=== PATIENT | male | born 1995 | race Caucasian/White ===

== ENCOUNTER 2020-03-11 22:46 | Emergency (ER) | payer OTHER, SELFPAY ==
[2020-03-11 22:59] VITALS: BP 155/86; PULSE 80; RESP 14; TEMP 36.7; O2SAT 98; BMI 26.2
--- NOTE | 2020-03-11 23:12 | W.ED.HA ---
HPI - Headache General: Chief Complaint: Headache Stated Complaint: headache/dizzy Time Seen by Provider: 03/11/20 23:01 History of Present Illness: HPI Narrative: Patient is a 24-year-old male who comes to the ED with a headache and mental cloudiness. Patient says he started having the symptoms about 2 days ago. Headache and mental cloudiness he said comes and goes and is not present all day. It usually worse in the mornings when he wakes up and then it gets better as he gets up moving around. The location of the headache sometimes starts in the neck and moves to the top of his head or it is retro-orbital behind both eyes. He has had some mild nausea with the headache, but has not had any vomiting. He currently says he is not having a headache while here in the ED but when the headache comes on he rates it about a 5 out of 10 at its worst. The mental cloudiness occurs along with the headaches. He describes it as being tough to focus or concentrate and forgets minor things. he just does not feel himself when he starts getting those headaches. He has no past history of migraines or any head trauma. Denies photophobia, vision changes, numbness or tingling to extremities or face, weakness to extremities, fever, bladder or bowel symptoms. Currently in the ED, patient is not having the headache or mental cloudiness symptoms. Associated symptoms: Reports confusion (mental cloudiness); Deny chest pain, fever(s), nausea, rash or vomiting Review of Systems Const: Denies: fever, chills or fatigue Eyes: Denies: change in vision or eye discomfort ENMT: Denies: throat pain, painful swallowing, nasal discharge or nasal congestion Card: Denies: chest pain, palpitations, edema, swelling of feet/ankles, shortness of breath on exertion or shortness of breath when lying down Resp: Denies: shortness of breath, productive cough or non-productive cough GI: Denies: abdominal pain, nausea, vomiting, diarrhea, constipation or blood in stool : Denies: flank pain, difficulty urinating, painful urination or blood in urine Musc: Denies: neck pain, back pain or extremity swelling Skin/Breast: Denies: rash or new lesion Neuro: Reports: headache and confusion (mental cloudiness); Denies: numbness in extremities or weakness in extremities PFSH ED PFSH: Social History Smoking and tobacco status: never smoked Physical Exam Const: COMMON NORMALS: no apparent distress, oriented x3, no limitations, healthy appearing and alert GENERAL APPEARANCE: cooperative, comfortable and well kempt HENMT: COMMON NORMALS: normocephalic HEAD & SCALP: normocephalic MOUTH: oral and palatal mucosa normal THROAT: posterior oropharynx normal and uvula midline Eye: COMMON NORMALS: PERRL, EOMs intact bilaterally, conjunctivae normal and normal visual huynh by confrontation CONJUNCTIVA: Yes conjunctivae normal PUPIL: Yes PERRL Neck/C-Spine: COMMON NORMALS: supple GENERAL: Yes normal visual inspection Resp: COMMON NORMALS: normal respiratory effort, no retractions, no use of accessory muscles and clear to auscultation bilaterally AUSCULTATION: clear to auscultation bilaterally Cardio: COMMON NORMALS: regular rate, regular rhythm, S1 normal heart sound, S2 normal heart sound, no gallops, no clicks, no murmurs and peripheral pulses 2+ throughout RATE: regular rate RHYTHM: regular rhythm HEART SOUNDS: S1 normal and S2 normal PERIPHERAL PULSES: pulses 2+ throughout GI: COMMON NORMALS: normal to inspection, nondistended, normoactive bowel sounds, soft to palpation, non-tender and no masses PALPATION: Yes soft : COMMON NORMALS: Yes no CVA tenderness BLADDER/KIDNEY EXAM: Yes no CVA tenderness Back/Pelvis: COMMON NORMALS: no CVA tenderness Extremity: COMMON NORMALS: normal to inspection, normal capillary refill and no pedal edema Neuro: COMMON NORMALS: oriented x3, CN's II-XII intact bilaterally, moves all extremities, no focal motor deficits and no sensory deficits noted SENSORIUM/ORIENTATION: Yes alert MENINGEAL SIGNS: No Brudzinski's sign SENSORY EXAM: Yes extremities (intact) MOTOR EXAM: strength 5/5 throughout Psych: APPEARANCE: Yes well kempt Skin: COMMON NORMALS: no rashes or lesions noted GENERAL SKIN EXAM: no rashes or lesions noted and dry skin Course Vital Signs: Vital signs: Vital Signs Temperature 98.1 F 03/11/20 22:59 Pulse Rate 80 03/11/20 22:59 Respiratory Rate 14 03/11/20 22:59 Blood Pressure 155/86 03/11/20 22:59 Pulse Oximetry 98 03/11/20 22:59 MDM - Headache Imaging Data^: CT Head: Attestation: I personally reviewed and interpreted this imaging study as follows: Radiologist's impression: [address] [address] [address] Scan Report Signed Patient: Nader Dudley Unit #: [id number] : 1995 Age/Sex: 24 / M ADM Date: 03/11/20 Loc: ER Room/Bed: Attending Dr: Ordering Provider/Ordering MD: Dedrick Boss Date of Service: 03/11/20 Procedure(s): CT head wo con* [id number] Accession Number(s): [id number] Report Number: [id number] PROCEDURE INFORMATION: Exam: CT Head Without Contrast Exam date and time: 03/11/2020 11:16 PM Age: 24 years old Clinical indication: Pain; Altered mental status/memory loss; Confusion or disorientation; Headache not specified; Additional info: Headache with confusion TECHNIQUE: Imaging protocol: Computed tomography of the head without contrast. Total DLP: 799.76 mGy-cm Radiation optimization: All CT scans at this facility use at least one of these dose optimization techniques: automated exposure control; mA and/or kV adjustment per patient size (includes targeted exams where dose is matched to clinical indication); or iterative reconstruction. COMPARISON: No relevant prior studies available. FINDINGS: Brain: No acute intracranial hemorrhage or mass effect. No definite acute infarct by CT. MRI could be more sensitive/specific for detection, as clinically directed. Ventricles: Ventricle size is normal for age. Bones/joints: No definite acute skull fracture. Sinuses: Included paranasal sinuses are essentially clear. Mastoid air cells: No significant acute finding. CT/CT head wo con* [id number] IMPRESSION: 1. No acute intracranial hemorrhage or mass effect. 2. No definite acute infarct by CT, see above. 3. Other findings discussed above. Radiation Dose CTDIVOL = (mGy): DLP = 799.76 (mGy-cm) Dictated By: David Duckworth MD Signed By: David Duckworth MD Signed Date/Time: 03/11/202351 DD/ 50 Discharge Plan Discharge Patient Disposition: Home, Self-Care Clinical Impression: Tension headache Condition: Stable Discharge Orders: Discharge Order (Routine); Ordered 03/12/20 Ordered By: Dedrick Boss Referrals: Kelvin Rios [Family Provider] - Discharge Diet: Regular Discharge Activity: Resume usual activity Patient Instructions: Tension Headache (ED) Activity Restrictions/Additional Instructions: Follow-up with your PCP in 7 to 10 days for reevaluation. Take [id number] ibuprofen or Tylenol as needed for any headaches. Drink plenty of fluids and stay hydrated. Return to ED if you are having any worsening symptoms or headache with other neurological deficits. Discharge Date/Time: 03/12/20 00:12 Coding Level of Care Code ED Chain Forming Machine Operator for Kristopher Fwd Exam Comprehensive
== END 2020-03-12 00:12 | disposition home or self-care (01) ==
PROVIDERS: Emergency Provider Physician Assistant
DX: G44.209 Tension-type headache, unspecified, not intractable (principal)
CPT/HCPCS: 12345; 70450; 99281; 99282

== ENCOUNTER 2023-05-19 16:17 | Emergency (ER) | payer OTHER, SELFPAY ==
[2023-05-19 16:26] VITALS: BP 136/88; PULSE 77; RESP 16; TEMP 36.7; O2SAT 98; BMI 28.1
--- NOTE | 2023-05-19 16:42 | W.ED.GENADLT ---
HPI - General Adult General: Chief complaint: Airway/Esophagus Foreign Body Stated complaint: possible food stuck in throat Time Seen by Provider: 05/19/23 16:34 Source: patient Mode of arrival: ambulatory Limitations: no limitations History of Present Illness: 27-year-old male states he has had difficulty swallowing the past does have a history of esophagitis states he is eating chips earlier today and states he feels like there is something stuck in his esophagus. He is handling secretions well he denies any vomiting diarrhea states he just has a foreign body sensation in his lower throat. He denies any worsening proving factors. Associated symptoms: Deny chest pain, dyspnea, nausea, rash or vomiting Review of Systems Const: Denies: fever(s) or chills Eyes: Denies: eye discomfort ENMT: Reports: odynophagia; Denies: throat pain or dental pain Card: Denies: chest pain Resp: Denies: dyspnea GI: Denies: abdominal pain, nausea, vomiting or diarrhea Musc: Denies: neck pain or back pain Skin/Breast: Denies: rash All/Imm: Denies: urticaria PFSH ED PFSH: Social History Smoking and tobacco status: never smoked Physical Exam Const: COMMON NORMALS: no acute distress and patient oriented x3 HENMT: COMMON NORMALS: normocephalic and atraumatic HEAD & SCALP: normocephalic and atraumatic Eye: COMMON NORMALS: conjunctivae normal CONJUNCTIVA: Yes conjunctivae normal Neck/C-Spine: COMMON NORMALS: full ROM and supple Chest: COMMONS NORMALS: normal inspection of the chest Resp: COMMON NORMALS: normal respiratory effort Cardio: COMMON NORMALS: regular rate RATE: regular rate GI: INSPECTION: Yes normal to inspection Extremity: COMMON NORMALS: normal to inspection Neuro: COMMON NORMALS: patient oriented x3 Psych: COMMON NORMALS: mental status grossly normal Skin: COMMON NORMALS: no rashes or lesions noted GENERAL SKIN EXAM: no rashes or lesions noted Course Vital Signs: Vital signs: Vital Signs Temperature 98.0 F 05/19/23 16:26 Pulse Rate 77 05/19/23 16:26 Respiratory Rate 16 05/19/23 16:26 Blood Pressure 136/88 05/19/23 16:26 Pulse Oximetry 98 05/19/23 16:26 Oxygen Delivery Me thod Room Air 05/19/23 16:26 MDM - General Adult Medical Decision Making Patient presents here with history of esophagitis he felt like someone stuck in his throat after glucagon he feels much improved he has been tolerating liquids here without any problem no signs of food impaction here we will start him on Protonix he is to do a liquid diet we will get him follow-up with Dr. Chang he is return if worsening. He understands agrees to plan. Medical Records I reviewed the patient's medical records. Lab Data I reviewed the patient's lab results. Discharge Plan Discharge Patient Disposition: Home Clinical Impression: Food impaction of esophagus Condition: Stable Prescriptions: New Protonix 40 mg tablet,delayed release (DR/EC) 40 mg PO DAILY Qty: 60 0RF Discharge Orders: Discharge ED (Routine); Ordered 05/19/23 Ordered By: Sulma Carreon Referrals: Phi Chang DO [Physician] - 1-3 days Constance Gastelum PA [Primary Care Provider] - 1-3 days Discharge Diet: Advance as tolerated Discharge Activity: Resume usual activity Patient Instructions: Food Impaction (ED), Esophagitis (ED) Coding Level of Care Code ED Care Management Coordinator for Kristopher Yarbrough
[2023-05-19] MEDS: nitroglycerin 0.4 mg sublingual Tablet SUBLINGUAL (16:45)
[2023-05-19] MEDS: glucagon 1 mg/mL KIT 1 mL IM (16:45)
--- NOTE | 2023-05-20 08:19 | PC.SOCIAL ---
Addendum entered by Shayla Thao 06/03/23 10:58: manager acquisition received the following message from the general surgery clinic regarding follow up appointment: patient declined Original Note: Referral sent to general surgery at this time. Clinic to contact patient with appt date/time.
== END 2023-05-19 17:37 | disposition home or self-care (01) ==
PROVIDERS: Emergency Provider Emergency Medicine; PCP Physician Assistant
DX: T18.128A Food in esophagus causing other injury, initial encounter (principal); X58.XXXA Exposure to other specified factors, initial encounter
CPT/HCPCS: 96372; 99284; J1610